=== PATIENT | male | born 1980 | race African-American/Black ===

== ENCOUNTER 2016-08-31 07:22 | Observation (INO) | payer MEDICAID, OTHER ==
[~2016-08-31] VITALS: Ht 175.3 cm; Wt 68.0 kg
[2016-08-31] VITALS (7 sets, daily range): BP systolic 115–124; BP diastolic 64–77; PULSE 71–85; RESP 16; TEMP 98; O2SAT 98–100
[~2016-08-31 07:22] MED LIST: BENZ100 PO; IBUP800T23 PO; MOME17I EACH NARE; ZITHTAB PO
--- NOTE | 2016-08-31 07:59 | PD ---
HPI Chief Complaint: Chest Pain Time Seen by Provider: 07:46 Travel History International Travel<30 days: No Contact w/Intl Traveler<30days: No Traveled to known affect area: No History of Present Illness HPI 36-year-old male with history of total anomalous pulmonary venous return, no cardiac intervention, here for evaluation of chest pain and left shoulder pain. Patient reports that yesterday after waking up he was having left shoulder pain. He believes he may slept on her shoulder wrong. Pain persisted throughout the day and was worse with movements. He denies known trauma to the shoulder. He states that when he woke up this morning he began to experience left-sided chest pain. Pain described as an ache, constant, moderate, no modifying factors. No known history of coronary artery disease. No paresthesias or motor deficits. No fevers, chills, cough, or recent illness. PFSH Past Medical History Medical History: Denies Significant Hx Hx Anticoagulant Therapy: No Cardiovascular Problems: Yes (PAPVR) Diabetes: No Diminished Hearing: No Past Surgical History Other Surgery: Yes (DOUBLE INGUINAL HERNIA REPAIR) Social History Alcohol Use: No Tobacco Use: No Substance Use: No Allergies-Medications (Allergen,Severity, Reaction): Coded Allergies: No Known Allergies (Unverified , 08/31/16) Reported Meds & Prescriptions Reported Meds & Active Scripts Active No Active Prescriptions or Reported Medications Review of Systems Except as stated in HPI: all other systems reviewed are Neg Physical Exam Narrative GENERAL: Well-developed, well-nourished, comfortable, no acute distress. SKIN: Warm and dry. No rash. HEAD: Atraumatic. Normocephalic. EYES: Pupils equal and round. No scleral icterus. No injection or drainage. ENT: Mucous membranes pink and moist. NECK: Trachea midline. No JVD. CARDIOVASCULAR: Regular rate and rhythm. Distal pulses brisk and equal bilaterally. RESPIRATORY: No accessory muscle use. Clear to auscultation. Breath sounds equal bilaterally. GASTROINTESTINAL: Abdomen soft, non-tender, nondistended. MUSCULOSKELETAL: No obvious deformities. No clubbing. No cyanosis. No edema. Left shoulder is without deformity, without warmth, with mild tenderness, with normal range of motion. The rest of his joints and extremities are without deformity, without tenderness, with normal range of motion. NEUROLOGICAL: Awake and alert. No obvious cranial nerve deficits. Motor grossly within normal limits. Normal speech. PSYCHIATRIC: Appropriate mood and affect; insight and judgment normal. Data Data Last Documented VS Vital Signs Date Time Temp Pulse Resp B/P Pulse Ox O2 Delivery O2 Flow Rate FiO2 08/31/16 09:08 71 16 115/69 100 Nasal Cannula 2 08/31/16 07:38 98.0 Orders Basic Metabolic Panel (Bmp) (08/31/16 07:51) Ckmb (Isoenzyme) Profile (08/31/16 07:51) Complete Blood Count With Diff (08/31/16 07:51) Magnesium (Mg) (08/31/16 07:51) Prothrombin Time / Inr (Pt) (08/31/16 07:51) Act Partial Throm Time (Ptt) (08/31/16 07:51) Troponin I (08/31/16 07:51) Chest, Single Ap (08/31/16 07:51) Ecg Monitoring (08/31/16 07:51) Iv Access Insert/Monitor (08/31/16 07:51) Oximetry (08/31/16 07:51) Aspirin Chew (Aspirin Chew) (08/31/16 08:00) Sodium Chloride 0.9% Flush (Ns Flush) (08/31/16 08:00) Shoulder, Complete (>2vws) (08/31/16 ) Ketorolac Inj (Toradol Inj) (08/31/16 09:15) Labs Laboratory Tests Test 08/31/16 07:50 White Blood Count 5.5 TH/MM3 Red Blood Count 4.70 MIL/MM3 Hemoglobin 14.1 GM/DL Hematocrit 41.9 % Mean Corpuscular Volume 89.2 FL Mean Corpuscular Hemoglobin 29.9 PG Mean Corpuscular Hemoglobin 33.5 % Concent Red Cell Distribution Width 13.1 % Platelet Count 186 TH/MM3 Mean Platelet Volume 8.6 FL Neutrophils (%) (Auto) 41.7 % Lymphocytes (%) (Auto) 46.8 % Monocytes (%) (Auto) 9.7 % Eosinophils (%) (Auto) 1.4 % Basophils (%) (Auto) 0.4 % Neutrophils # (Auto) 2.3 TH/MM3 Lymphocytes # (Auto) 2.6 TH/MM3 Monocytes # (Auto) 0.5 TH/MM3 Eosinophils # (Auto) 0.1 TH/MM3 Basophils # (Auto) 0.0 TH/MM3 CBC Comment DIFF FINAL Differential Comment Prothrombin Time 10.6 SEC Prothromb Time International 1.0 RATIO Ratio Activated Partial 24.5 SEC Thromboplast Time Sodium Level 142 MEQ/L Potassium Level 3.7 MEQ/L Chloride Level 107 MEQ/L Carbon Dioxide Level 26.8 MEQ/L Anion Gap 8 MEQ/L Blood Urea Nitrogen 17 MG/DL Creatinine 0.99 MG/DL Estimat Glomerular Filtration 104 ML/MIN Rate Random Glucose 92 MG/DL Calcium Level 8.9 MG/DL Magnesium Level 2.0 MG/DL Total Creatine Kinase 94 U/L Troponin I LESS THAN 0.02 NG/ML MDM Medical Decision Making Medical Screen Exam Complete: Yes Emergency Medical Condition: Yes Medical Record Reviewed: Yes Interpretation(s) EKG: Sinus, rate 65, normal axis, normal intervals, no acute ischemic abnormality. Differential Diagnosis ACS, pneumothorax, peritonitis, PE, pneumonia, musculoskeletal pain, septic arthritis unlikely Narrative Course Vital signs show heart rate 79, blood pressure 121/68, pulse ox 98% on 2 L nasal cannula, oral temp of 98F. CBC is unremarkable. BMP is unremarkable. Cardiac enzymes are negative. Chest x-ray shows no acute disease. Left shoulder x-ray read as unremarkable exam. The patient was made aware of all findings. He is still complaining of chest discomfort and left shoulder discomfort. His exam is not consistent with a septic arthritis. Case discussed with [facility] automotive leasing sales representative curriculum consultant Dr. Soler who recommends that the patient be admitted to the chest pain center for stress test. Case discussed with hospitalist Dr. Loera who will admit the patient to her service to the chest pain center. Diagnosis Primary Impression: Chest pain Qualified Code: R07.9 - Chest pain, unspecified type Scripts No Active Prescriptions or Reported Meds Noramn Danielle MD Aug 31, 2016 07:59
[2016-08-31] MEDS ORDERED: ASPIRIN 81 MG CHEW TAB PO ONE (08:00)
[2016-08-31] MEDS ORDERED: SODIUM CHLORIDE 0.9% FLUSH 5 ML FLUSH IVF PRN ×2 (08:00→11:00)
[2016-08-31 08:01] LABS: AUTOMATED NEUTROPHIL # 2.3 TH/MM3 (1.8-7.7); BASOPHIL % 0.4 % (0.0-2.0); EOSINOPHIL # 0.1 TH/MM3 (0-0.4); EOSINOPHIL % 1.4 % (0.0-4.0); HEMATOCRIT 41.9 % (39.0-51.0); LYMPH % 46.8 % (9.0-44.0); LYMPHOCYTE # 2.6 TH/MM3 (1.0-4.8); MEAN CELL VOLUME 89.2 FL (80.0-100.0); MEAN CORPUSCULAR HEMOGLOBIN 29.9 PG (27.0-34.0); MEAN CORPUSCULAR HGB CONC 33.5 % (32.0-36.0); MONO % 9.7 % (0.0-8.0); NEUT % 41.7 % (16.0-70.0); PLATELET COUNT 186 TH/MM3 (150-450); RED CELL DISTRIBUTION WIDTH 13.1 % (11.6-17.2); WHITE BLOOD COUNT 5.5 TH/MM3 (4.0-11.0)
[2016-08-31 08:03] LABS: HEMO FLAGS DIFF FINAL
[2016-08-31 08:09] LABS: CHLORIDE 107 MEQ/L (98-107); POTASSIUM 3.7 MEQ/L (3.5-5.1); SODIUM (NA) 142 MEQ/L (136-145)
[2016-08-31 08:12] LABS: APTT (PATIENT) 24.5 SEC (24.3-30.1); PROTHROMBIN TIME - PATIENT 10.6 SEC (9.8-11.6)
[2016-08-31 08:13] LABS: ANION GAP 8 MEQ/L (5-15); BICARBONATE 26.8 MEQ/L (21.0-32.0); BLOOD UREA NITROGEN 17 MG/DL (7-18)
[2016-08-31 08:16] LABS: GLOMERULAR FILTRATION RATE 104 ML/MIN (>89)
[2016-08-31 08:25] LABS: CREATINE KINASE 94 U/L (39-308)
--- NOTE | 2016-08-31 08:33 | RADHPO ---
EXAM DATE/TIME: 08/31/2016 08:09 [facility] COMPARISON: No previous studies available for comparison. INDICATIONS : Left shoulder and neck pain for several days. MEDICAL HISTORY : None. SURGICAL HISTORY : None. ENCOUNTER: Initial ACUITY: 2 days PAIN SCORE: 6/10 LOCATION: Bilateral chest FINDINGS: Portable AP view of the chest demonstrates a normal-sized cardiac silhouette. No effusion, consolidat ion, or pneumothorax is visualized. The bones and soft tissues demonstrate no acute abnormality. CONCLUSION: No acute cardiopulmonary abnormality is identified. Allan Tang MD on August 31, 2016 at 8:31 Board Certified Radiologist. This report was verified electronically.
--- NOTE | 2016-08-31 09:11 | RADHPO ---
EXAM DATE/TIME: 08/31/2016 08:06 [facility] COMPARISON: No previous studies available for comparison. INDICATIONS : Left shoulder pain for several days. MEDICAL HISTORY : None. SURGICAL HISTORY : None. ENCOUNTER: Initial ACUITY: 2 days PAIN SCORE: 9/10 LOCATION: Left shoulder. FINDINGS: Multiple view examination of the left shoulder demonstrates no evidence of fracture or dislocation. The glenohumeral and acromioclavicular joints are maintained. There is normal range of motion betwee n internal and external rotation. Bony mineralization is normal. CONCLUSION: Unremarkable examination of the left shoulder. Elba Becker MD on August 31, 2016 at 9:10 Board Certified Radiologist. This report was verified electronically.
[2016-08-31] MEDS ORDERED: KETOROLAC TROMETHAMINE 30 MG/ML (IVP) VIAL IV PUSH ONE (09:15)
[2016-08-31 11:45] LABS: CREATINE KINASE 116 U/L (39-308)
[2016-08-31 11:59] LABS: CKMB 0.7 NG/ML (0.5-3.6)
--- NOTE | 2016-08-31 14:07 | HHI.HP ---
[facility] Physician No Primary Care Physician Admission Diagnosis chest pain Diagnoses: (1) Trapezius muscle strain Diagnosis: Principal (2) Musculoskeletal chest pain Diagnosis: Principal Chief Complaint: neck pain Travel History International Travel<30 Days: No Contact w/Intl Traveler <30 Da: No Traveled to Known Affected Are: No History of Present Illness 36-year-old -[place] male with history of anomalous pulmonary venous return is admitted to chest pain center. Patient presents with complaint of tight muscles over the left neck and shoulder. He states it started 2 days ago after sleeping with the fan on and may have slept on it wrong. He then states he awoke this morning with worsening muscle cramp. He states he has a 2-year- old and lifted and swung the child around last night. He additionally worked 8 days in a row. He states he was a little nauseous this morning. He states it hurts to turn his head to the right. He states that warm compresses to the area as well as standing in the son helped alleviate the pain. He states he did get some radiation of pain into the left chest but it felt like "straining" which started last night and lasted until this morning. Additionally got some pain over the left shoulder blade. States his pain initially was a 10/10 but is a 5/10 now. He feels a little bit of pain in the left chest currently. He desires a muscle relaxant. Toradol was administered in the ED with some relief. He denies any diaphoresis, numbness or tingling in the arms. He states he had some mild shortness of breath when sitting at his desk at work from the discomfort. He denies any recent fevers or chills or cold symptoms. Denies any dizziness or blurred vision. Denies any leg swelling. 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 He states he underwent a cardiac MRI and also underwent a treadmill stress test which was normal 2 years ago. 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 He states he is active and plays basketball. Review of Systems Constitutional: DENIES: Diaphoretic episodes, Fever, Chills Eyes: DENIES: Blurred vision Ears, nose, mouth, throat: DENIES: Throat pain, Ear Pain, Running Nose Respiratory: COMPLAINS OF: Shortness of breath, DENIES: Cough Cardiovascular: COMPLAINS OF: Chest pain, DENIES: Lower Extremity Edema Gastrointestinal: COMPLAINS OF: Nausea Genitourinary: DENIES: Dysuria Musculoskeletal: COMPLAINS OF: Back pain Integumentary: DENIES: Rash Neurologic: DENIES: Paresthesias Past Family Social History Past Medical History Anomalous pulmonary venous return Heart murmur, regurgitation (patient cannot recall which valve) Past Surgical History Bilateral inguinal hernia repair age 5 or 6 Reported Medications None Allergies: Coded Allergies: No Known Allergies (Unverified , 08/31/16) Family History Mother: Heart trouble, murmur. Currently in her late 50s but had 2 TIAs in the past 10 years; borderline diabetic; hypertension. Paternal grandmother: Pacemaker; diabetes. Alcoholism on father's side of family. Social History Denies alcohol use. No history of tobacco use. Denies illicit drug use. Works in registration at the hospital. Physical Exam Vital Signs Vital Signs Date Time Temp Pulse Resp B/P Pulse Ox O2 Delivery O2 Flow Rate FiO2 08/31/16 13:20 100 21 08/31/16 13:17 81 16 117/77 100 Room Air 08/31/16 11:10 16 98 Room Air 08/31/16 11:06 85 16 115/64 98 Room Air 08/31/16 09:08 71 16 115/69 100 Nasal Cannula 2 08/31/16 07:57 16 100 Nasal Cannula 2 08/31/16 07:46 16 98 Nasal Cannula 2 08/31/16 07:38 98.0 79 16 121/68 98 Physical Exam GENERAL: This is a pleasant well-nourished, well-developed patient, in no apparent distress. SKIN: No rashes, ecchymoses or lesions. Nail beds well perfused. HEAD: Atraumatic. Normocephalic. NECK: Trachea midline. No midline cervical spine tenderness. Tender over left paracervical muscles. Patient has pain over the left neck when he turns to the right. He has slight limitation with left lateral range of motion and pain. CHEST: Mild reproducible tenderness over left pectoral muscles. CARDIOVASCULAR: Regular rate and rhythm. Murmur over pulmonic region. RESPIRATORY: Clear to auscultation. Breath sounds equal bilaterally. No wheezes , rales, or rhonchi. GASTROINTESTINAL: Abdomen soft, non-tender, nondistended. No guarding. MUSCULOSKELETAL: Full active flexion left shoulder. Tender over trapezius muscles of left posterior shoulder. No lower extremity edema bilaterally. NEUROLOGICAL: Awake and alert. Motor grossly within normal limits. Five out of 5 muscle strength in bilateral upper and lower extremities. Normal speech. Laboratory Laboratory Tests Test 08/31/16 08/31/16 07:50 11:15 White Blood Count 5.5 Red Blood Count 4.70 Hemoglobin 14.1 Hematocrit 41.9 Mean Corpuscular Volume 89.2 Mean Corpuscular Hemoglobin 29.9 Mean Corpuscular Hemoglobin 33.5 Concent Red Cell Distribution Width 13.1 Platelet Count 186 Mean Platelet Volume 8.6 Neutrophils (%) (Auto) 41.7 Lymphocytes (%) (Auto) 46.8 Monocytes (%) (Auto) 9.7 Eosinophils (%) (Auto) 1.4 Basophils (%) (Auto) 0.4 Neutrophils # (Auto) 2.3 Lymphocytes # (Auto) 2.6 Monocytes # (Auto) 0.5 Eosinophils # (Auto) 0.1 Basophils # (Auto) 0.0 CBC Comment DIFF FINAL Differential Comment Prothrombin Time 10.6 Prothromb Time International 1.0 Ratio Activated Partial 24.5 Thromboplast Time Sodium Level 142 Potassium Level 3.7 Chloride Level 107 Carbon Dioxide Level 26.8 Anion Gap 8 Blood Urea Nitrogen 17 Creatinine 0.99 Estimat Glomerular Filtration 104 Rate Random Glucose 92 Calcium Level 8.9 Magnesium Level 2.0 Total Creatine Kinase 94 116 Troponin I LESS THAN 0.02 LESS THAN 0.02 Creatine Kinase MB 0.7 Result Diagram: 08/31/16 0750 08/31/16 0750 Imaging Last Impressions Chest X-Ray 08/31/16 0751 Signed Impressions: Service Date/Time: August 08:09 - CONCLUSION: No acute cardiopulmonary abnormality is identified. Allan Tang MD Shoulder X-Ray 08/31/16 0000 Signed Impressions: Service Date/Time: August 08:06 - CONCLUSION: Unremarkable examination of the left shoulder. Elba Becker MD Assessment and Plan Assessment and Plan 36-year-old male with: Musculoskeletal chest pain in left trapezius strain: Muscle tightness over the left side of neck radiating to the left chest, reproducible on exam. Patient has a history of total anomalous pulmonary venous return but had cardiac workup performed 2 years ago. Patient worked 8 days straight, lifted his young child, and also slept in a cold environment all of which likely contributed to his muscle strain. Vitals good. -EKGs x 3 with normal sinus rhythm and first-degree AV block, but no evidence of ischemia. Troponin 3 less than 0.02. -Chest x-ray personally interpreted and normal. Left shoulder x-ray personally interpreted and normal. -Patient had some relief with Toradol in ED. Will order 60 mg IV Norflex. -Patient does not require a stress test Discharge disposition: Home in fair condition. Diet: Heart healthy. Medications: Patient prescribed Flexeril and ibuprofen for home. Activity: No heavy lifting or bending. Follow-up: PCP; patient advised to obtain local local bulk driver. Discussed Condition With patient, Dr. Loera Attending Statement The exam, history, and the medical decision-making described in the above note were completed with the assistance of the mid-level provider. I reviewed and agree with the findings presented. I attest that I had a hcvr-to-oepw encounter with the patient on the same day, and personally performed and documented my assessment and findings in the medical record. Patient with musculoskeletal chest pain resolved with muscle relaxers. No evidence of acute coronary syndrome at this time. We'll continue with outpatient follow-up. Discussed with patient and family at bedside. Problem Qualifiers (1) Trapezius muscle strain: Mary Cedillo Aug 31, 2016 14:07 Vernell Loera MD Aug 31, 2016 15:15
[2016-08-31 14:14] LABS: CREATINE KINASE 103 U/L (39-308)
[2016-08-31] MEDS ORDERED: ORPHENADRINE INJ 60 MG/2 ML AMP IV ONE (14:15)
[2016-08-31 14:26] LABS: CKMB 0.6 NG/ML (0.5-3.6)
[2016-08-31] MEDS ORDERED: CYCL1TAB29 PO (14:54)
[2016-08-31] MEDS ORDERED: IBUP-232 PO (14:54)
--- NOTE | 2016-08-31 14:55 | HHI.DCPOC ---
Discharge Care Plan Diagnosis: (1) Musculoskeletal chest pain (2) Trapezius muscle strain Your Health Problems Are: Chest Pain Goals to Promote Your Health * To prevent worsening of your condition and complications * To maintain your health at the optimal level Directions to Meet Your Goals Take your medications as prescribed Follow your dietary instruction Follow activity as directed Keep your appointments as scheduled Take your immunizations and boosters as scheduled If your symptoms worsen call your PCP, if no PCP go to Urgent Care Center or Emergency Room Smoking is Dangerous to Your Health. Avoid second hand smoke Call the 24-hour hour crisis hotline for domestic abuse at Mary Cedillo Aug 31, 2016 14:55
[2016-08-31] MEDS ORDERED: SODIUM CHLORIDE 0.9% FLUSH 5 ML FLUSH IVF SCH (21:00)
--- NOTE | 2016-09-01 16:44 | EKG ---
Date Performed: 08/31/2016 Time Performed: 14:07:50 PTAGE: 36 years EKG: Sinus rhythm with borderline 1st degree A-V block rSr'(V1) - probable normal variant Borderline ECG PREVIOUS TRACING : 08/31/2016 11.00 Compared to prior tracing no significant change DOCTOR: Dontrell Barros Interpretating Date/Time 09/01/2016 16:42:05
--- NOTE | 2016-09-01 16:57 | EKG ---
Date Performed: 08/31/2016 Time Performed: 11:00:10 PTAGE: 36 years EKG: Sinus rhythm with borderline 1st degree A-V block rSr'(V1) - probable normal variant Borderline ECG PREVIOUS TRACING : 08/31/2016 07.52 Compared to prior tracing no significant change DOCTOR: Dontrell Barros Interpretating Date/Time 09/01/2016 16:55:47
--- NOTE | 2016-09-01 16:59 | EKG ---
Date Performed: 08/31/2016 Time Performed: 07:52:32 PTAGE: 36 years EKG: Sinus rhythm Normal ECG NO PREVIOUS TRACING DOCTOR: Dontrell Barros Interpretating Date/Time 09/01/2016 16:57:26
== END 2016-08-31 15:59 | disposition home or self-care (01) ==
LOC: PHED 07:22 → PHEDA 10:38 → PHEDH 14:44
PROVIDERS: ADMIT Hospitalist; ATTEND Hospitalist
DX: R07.89 Other chest pain (principal); S16.1XXA Strain of muscle, fascia and tendon at neck level, initial encounter; I44.0 Atrioventricular block, first degree
CPT/HCPCS: 71010; 73030; 80048; 82550; 82552; 83735; 84484; 85025; 85610; 85730; 93005; 96374; 99285; G0378; J1885; J2360

== ENCOUNTER 2017-07-31 09:19 | Emergency (ER) | payer OTHER ==
[~2017-07-31] VITALS: Ht 175.3 cm; Wt 66.2 kg
[~2017-07-31 09:19] MED LIST changes: -BENZ100 PO; +CYCL10TA PO; +IBUP-232 PO; -IBUP800T23 PO; -MOME17I EACH NARE; -ZITHTAB PO
[2017-07-31 09:25] VITALS: BP 127/68; PULSE 85; RESP 16; TEMP 97.8; O2SAT 100
[2017-07-31] MEDS ORDERED: SODIUM CHLOR 0.9% 1000 ML INJ 1,000 ML IV SCH (09:54)
--- NOTE | 2017-07-31 09:56 | PD ---
HPI Chief Complaint: GI Complaint Time Seen by Provider: 09:47 Travel History International Travel<30 days: No Contact w/Intl Traveler<30days: No Traveled to known affect area: No History of Present Illness HPI Patient 37-year-old male presents emergency department for evaluation of diarrhea. The patient was diagnosed with sinusitis earlier this month, he was prescribed Augmentin, he was supposed to finish the medication on the 18 but on the 15 of this month he was already having diarrhea and decided this continues medication then. Denies any fevers denies any blood in the stool. He states that serial usually makes his diarrhea worse. 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 He states he outgrew that as he got older. States she's also been feeling somewhat weak. Sinuses have healed. States symptoms are moderate, constant, having up to 5 watery brown stools an hour, context as above, associated signs symptoms as above. PFSH Past Medical History Cardiovascular Problems: Yes ("CONGENITAL HEART DEFECT") Influenza Vaccination: No Past Surgical History Abdominal Surgery: Yes (BILAT INGUINAL HERNIORRHAPHY) Social History Alcohol Use: Yes (RARELY) Tobacco Use: No Substance Use: No Allergies-Medications (Allergen,Severity, Reaction): Coded Allergies: No Known Allergies (Unverified , 07/31/17) Reported Meds & Prescriptions Reported Meds & Active Scripts Active Bentyl (Dicyclomine HCl) 10 Mg Cap 10 Mg PO TID PRN Zofran (Ondansetron HCl) 4 Mg Tab 4 Mg PO Q6HR PRN Flagyl (Metronidazole) 500 Mg Tab 500 Mg PO BID 14 Days Review of Systems Except as stated in HPI: all other systems reviewed are Neg Physical Exam Narrative GENERAL: Well-developed well-nourished male in no obvious distress SKIN: Focused skin assessment warm/dry. HEAD: Atraumatic. Normocephalic. EYES: Pupils equal and round. No scleral icterus. No injection or drainage. ENT: No nasal bleeding or discharge. Mucous membranes pink and moist. NECK: Trachea midline. No JVD. CARDIOVASCULAR: Tachycardic when sits forward with regular rhythm.. No murmur appreciated. 2+ bilateral equal pulses in all 4 extremities. RESPIRATORY: No accessory muscle use. Clear to auscultation. Breath sounds equal bilaterally. GASTROINTESTINAL: Abdomen soft, non-tender, nondistended. Hepatic and splenic margins not palpable. MUSCULOSKELETAL: No obvious deformities. No clubbing. No cyanosis. No edema. NEUROLOGICAL: Awake and alert. No obvious cranial nerve deficits. Motor grossly within normal limits. Normal speech. PSYCHIATRIC: Appropriate mood and affect; insight and judgment normal. Data Data Last Documented VS Orders Orders Complete Blood Count With Diff (07/31/17 09:54) Comprehensive Metabolic Panel (07/31/17 09:54) Iv Access Insert/Monitor (07/31/17 09:54) Oximetry (07/31/17 09:54) Ondansetron Inj (Zofran Inj) (07/31/17 10:00) Sodium Chlor 0.9% 1000 Ml Inj (Ns 1000 M (07/31/17 09:54) Sodium Chloride 0.9% Flush (Ns Flush) (07/31/17 10:00) C Diff Toxin Pcr (07/31/17 09:54) Ed Discharge Order (07/31/17 11:01) Labs Laboratory Tests Test 07/31/17 10:22 07/31/17 11:05 White Blood Count 8.5 TH/MM3 Red Blood Count 4.78 MIL/MM3 Hemoglobin 13.9 GM/DL Hematocrit 42.2 % Mean Corpuscular Volume 88.3 FL Mean Corpuscular Hemoglobin 29.0 PG Mean Corpuscular Hemoglobin Concent 32.8 % Red Cell Distribution Width 12.4 % Platelet Count 223 TH/MM3 Mean Platelet Volume 8.0 FL Neutrophils (%) (Auto) 64.6 % Lymphocytes (%) (Auto) 17.8 % Monocytes (%) (Auto) 16.1 % Eosinophils (%) (Auto) 0.7 % Basophils (%) (Auto) 0.8 % Neutrophils # (Auto) 5.4 TH/MM3 Lymphocytes # (Auto) 1.5 TH/MM3 Monocytes # (Auto) 1.4 TH/MM3 Eosinophils # (Auto) 0.1 TH/MM3 Basophils # (Auto) 0.1 TH/MM3 CBC Comment DIFF FINAL Differential Comment Blood Urea Nitrogen 11 MG/DL Creatinine 0.96 MG/DL Random Glucose 93 MG/DL Total Protein 7.8 GM/DL Albumin 3.8 GM/DL Calcium Level 8.9 MG/DL Alkaline Phosphatase 69 U/L Aspartate Amino Transf (AST/SGOT) 12 U/L Alanine Aminotransferase (ALT/SGPT) 25 U/L Total Bilirubin 0.5 MG/DL Sodium Level 140 MEQ/L Potassium Level 3.7 MEQ/L Chloride Level 106 MEQ/L Carbon Dioxide Level 26.3 MEQ/L Anion Gap 8 MEQ/L Estimat Glomerular Filtration Rate 107 ML/MIN Stool C. difficile Toxin (PCR) POSITIVE Stl C. difficile Toxin Epiderm 027 PRESUMPTIVE NEGATIVE MDM Medical Decision Making Medical Screen Exam Complete: Yes Emergency Medical Condition: Yes Differential Diagnosis C. difficile, dehydration, acute abdomen unlikely, toxic megacolon unlikely, electrolyte abnormality. Narrative Course Patient roomed in emergency department, normal saline given, stool sample was given, there is a fair amount of mucus in the stool and highly suspect C. 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 We'll start empiric Flagyl, awaiting C. difficile results and will discuss with him but he will need follow-up with [facility]. Discussed no Imodium. The next day did receive the patient's C. difficile results and I called him at home to deliver them, he is feeling better, we reiterated not using any Imodium until he is seen by physician who says it is okay to use the product. Diagnosis Primary Impression: Diarrhea Qualified Codes: A09 - Infectious gastroenteritis and colitis, unspecified Additional Impression: C. difficile diarrhea Additional Instructions: Drink plenty of fluids, avoid Imodium or other antidiarrheal agents. Med/Other Pt SpecificInfo: Prescription(s) given Scripts Dicyclomine (Bentyl) 10 Mg Cap 10 MG PO TID Y for Bowel Management, #20 CAP 0 Refills Prov: Saturnino Colvin MD 07/31/17 Ondansetron (Zofran) 4 Mg Tab 4 MG PO Q6HR Y for NAUSEA OR VOMITING, #20 TAB 0 Refills Prov: Saturnino Colvin MD 07/31/17 Metronidazole (Flagyl) 500 Mg Tab 500 MG PO BID for Infection for 14 Days, #28 TAB 0 Refills Prov: Saturnino Colvin MD 07/31/17 Disposition: 01 DISCHARGE HOME Condition: Stable Saturnino Colvin MD Jul 31, 2017 09:56
[2017-07-31] MEDS ORDERED: SODIUM CHLORIDE 0.9% FLUSH 10 ML FLUSH IV FLUSH PRN (10:00)
[2017-07-31] MEDS ORDERED: ONDANSETRON HCL 4 MG/2 ML VIAL IVP ONE (10:00)
[2017-07-31 10:25] LABS: AUTOMATED NEUTROPHIL # 5.4 TH/MM3 (1.8-7.7); BASOPHIL # 0.1 TH/MM3 (0-0.2); BASOPHIL % 0.8 % (0.0-2.0); EOSINOPHIL # 0.1 TH/MM3 (0-0.4); EOSINOPHIL % 0.7 % (0.0-4.0); HEMATOCRIT 42.2 % (39.0-51.0); HEMOGLOBIN 13.9 GM/DL (13.0-17.0); LYMPH % 17.8 % (9.0-44.0); LYMPHOCYTE # 1.5 TH/MM3 (1.0-4.8); MEAN CELL VOLUME 88.3 FL (80.0-100.0); MEAN CORPUSCULAR HGB CONC 32.8 % (32.0-36.0); MONO % 16.1 % (0.0-8.0); MONOCYTE # 1.4 TH/MM3 (0-0.9); NEUT % 64.6 % (16.0-70.0); PLATELET COUNT 223 TH/MM3 (150-450); RED BLOOD COUNT 4.78 MIL/MM3 (4.50-5.90); RED CELL DISTRIBUTION WIDTH 12.4 % (11.6-17.2); WHITE BLOOD COUNT 8.5 TH/MM3 (4.0-11.0)
[2017-07-31 10:36] LABS: CHLORIDE 106 MEQ/L (98-107); SODIUM (NA) 140 MEQ/L (136-145)
[2017-07-31 10:40] LABS: ALBUMIN 3.8 GM/DL (3.4-5.0); BICARBONATE 26.3 MEQ/L (21.0-32.0); BLOOD UREA NITROGEN 11 MG/DL (7-18); CALCIUM 8.9 MG/DL (8.5-10.1); GLUCOSE,RANDOM 93 MG/DL (74-106)
[2017-07-31 10:43] LABS: ALT (GPT) 25 U/L (12-78); AST (GOT) 12 U/L (15-37); CREATININE 0.96 MG/DL (0.60-1.30); GLOMERULAR FILTRATION RATE 107 ML/MIN (>89)
[2017-07-31 10:45] LABS: TOTAL BILIRUBIN ADULT 0.5 MG/DL (0.2-1.0); TOTAL PROTEIN 7.8 GM/DL (6.4-8.2)
[2017-07-31 10:46] LABS: ALKALINE PHOSPHATASE 69 U/L (45-117)
[2017-07-31] MEDS ORDERED: DICY10 PO (11:00)
[2017-07-31] MEDS ORDERED: METR-1 PO (11:00)
[2017-07-31] MEDS ORDERED: ZOFR4TAB PO (11:00)
[2017-07-31 11:33] VITALS: BP 130/77
== END 2017-07-31 11:49 | disposition home or self-care (01) ==
LOC: MERGE 09:19 → PHED 09:19
DX: R19.7 Diarrhea, unspecified (principal); B96.89 Other specified bacterial agents as the cause of diseases classified elsewhere; Z79.899 Other long term (current) drug therapy
CPT/HCPCS: 80053; 85025; 87493; 96361; 96374; 99284; J2405; J7030